=== PATIENT | male | born 1975 | race Caucasian/White ===

== ENCOUNTER 2017-01-11 08:06 | Emergency (ER) | payer OTHER ==
[2017-01-11 08:30] VITALS: BP 122/77; PULSE 81; TEMP 97.8; BMI 21.2
[2017-01-11] MEDS ORDERED: IBUPROFEN 600 MG TABLET (FP) PO ONE ×2 (09:19→09:25)
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
== END 2017-01-11 10:17 | disposition home or self-care (01) ==
LOC: JERFT 08:06
DX: S39.012A Strain of muscle, fascia and tendon of lower back, initial encounter (principal); S13.4XXA Sprain of ligaments of cervical spine, initial encounter; S60.222A Contusion of left hand, initial encounter; S60.212A Contusion of left wrist, initial encounter; V43.52XA Car driver injured in collision with other type car in traffic accident, initial encounter; W22.11XA Striking against or struck by driver side automobile airbag, initial encounter; Y92.488 Other paved roadways as the place of occurrence of the external cause; Y93.89 Activity, other specified; Y99.8 Other external cause status
CPT/HCPCS: 73110-TC-LT; 73130-TC-LT; 99281-25

== ENCOUNTER 2017-04-18 20:05 | Emergency (ER) | payer OTHER ==
--- NOTE | 2017-04-18 20:14 | PDOC ---
Rapid Medical Evaluation Time Seen by Provider: 04/18/17 20:13 Medical Evaluation: Allergies Allergy/AdvReac Type Severity Reaction Status Date / Time No Known Allergies Allergy Verified 02/01/17 14:10 04/18/17 20:14 42 year old male requesting HIV test.
[2017-04-18 20:17] VITALS: BP 123/68; PULSE 85; TEMP 98.6; BMI 21.5
--- NOTE | 2017-04-18 21:49 | PDOC ---
History of Present Illness - General Chief Complaint: Revisit, Lab Variance Stated Complaint: EVALUATION Time Seen by Provider: 04/18/17 20:13 History Source: Patient Exam Limitations: No Limitations - History of Present Illness Initial Comments: 04/18/17 21:44 pt here for HIV test. 42 yr male no PMHX states he had unprotected sex one month ago and would like a HIV test. Pt denies any symptoms of urinary burning, urgency or any pain, no discharge from the penis. 04/18/17 21:49 Severity: mild Past History - Past Medical History Allergies/Adverse Reactions: Allergies Allergy/AdvReac Type Severity Reaction Status Date / Time No Known Allergies Allergy Verified 04/18/17 20:17 Home Medications: Ambulatory Orders NK [No Known Home Medication] 04/18/17 COPD: No - Suicide/Smoking/Psychosocial Hx Smoking Status: No Smoking History: Never smoked Have you smoked in the past 12 months: No Number of Cigarettes Smoked Daily: 0 If you are a former smoker, when did you quit?: 28yrs Information on smoking cessation initiated: No Hx Alcohol Use: No Drug/Substance Use Hx: No Substance Use Type: None Review of Systems - Review of Systems Able to Perform ROS?: Yes Is the patient limited Lao proficient: No Constitutional: No: Symptoms Reported HEENTM: No: Symptoms Reported Respiratory: No: Symptoms reported Cardiac (ROS): No: Symptoms Reported ABD/GI: No: Symptoms Reported : Yes: Symptoms Reported *Physical Exam - Vital Signs Last Vital Signs Temp Pulse Resp BP Pulse Ox 98.6 F 85 17 123/68 98 04/18/17 20:14 04/18/17 20:14 04/18/17 20:14 04/18/17 20:14 04/18/17 20:14 - Physical Exam General Appearance: Yes: Nourished, Appropriately Dressed HEENT: positive: EOMI, EMILIO, Normal ENT Inspection Neck: positive: Supple Extremity: positive: Normal Capillary Refill, Normal Inspection, Normal Range of Motion Integumentary: positive: Normal Color, Dry, Warm Neurologic: positive: Fully Oriented, Alert, Normal Mood/Affect, Normal Response , Motor Strength 5/5 Medical Decision Making - Medical Decision Making 04/18/17 21:51 cc: requesting HIV test after having unprotected intercourse pt has no past medical history states last year had a negative HIV test I have given pt info for the [facility] for follow up as needed for any further testing pt denies any penile discharge or drainage pt does not want to be tested for Gc/chlamydia at this time or Syphylis will follow up at [facility] *DC/Admit/Observation/Transfer Diagnosis at time of Disposition: Negative laboratory testing for HIV - Discharge Dispostion Disposition: HOME Condition at time of disposition: Good - Referrals - Patient Instructions Additional Instructions: 04/18/17 1. As discussed, a screening test for the HIV virus was performed today. Your HIV test is Negative (normal). 2. As discussed, if you engaged in high risk-behavior in the three (3) months prior to this test, you could still potentially be at risk and you will need to be re-tested. 3. As discussed, avoid any high risk behavior (such as unprotected sex or needle-sharing) in the future to minimize the chances of farhana HIV. follow with the [facility] as needed [facility] Office [address] [place] [address], [place] [id number] Clinics: Fax for 2nd floor Clinic Services: - Post Discharge Activity
== END 2017-04-18 22:17 | disposition home or self-care (01) ==
LOC: JERFT 20:05
DX: Z77.21 Contact with and (suspected) exposure to potentially hazardous body fluids (principal); Z11.4 Encounter for screening for human immunodeficiency virus [HIV]
CPT/HCPCS: 36415; 99281-25

== ENCOUNTER 2018-05-15 10:27 | Emergency (ER) | payer OTHER ==
[2018-05-15 10:32] VITALS: BP 118/68; PULSE 81; TEMP 98; BMI 21.5
--- NOTE | 2018-05-15 11:25 | PDOC ---
History of Present Illness - General Chief Complaint: HIV Testing Stated Complaint: STS Time Seen by Provider: 05/15/18 10:59 History Source: Patient Exam Limitations: Clinical Condition - History of Present Illness Initial Comments: 05/15/18 11:21 Patient with no significant past medical history present for STD testing appetitive unprotective sex 2 weeks ago. Patient denies any symptoms. Timing/Duration: momentarily Past History - Past Medical History Allergies/Adverse Reactions: Allergies Allergy/AdvReac Type Severity Reaction Status Date / Time No Known Allergies Allergy Verified 05/15/18 10:29 Home Medications: Ambulatory Orders NK [No Known Home Medication] 04/18/17 COPD: No - Suicide/Smoking/Psychosocial Hx Smoking Status: No Smoking History: Never smoked Have you smoked in the past 12 months: No Number of Cigarettes Smoked Daily: 0 If you are a former smoker, when did you quit?: 28yrs Hx Alcohol Use: No Drug/Substance Use Hx: No Substance Use Type: None Review of Systems - Review of Systems Able to Perform ROS?: Yes Is the patient limited Slovenian proficient: No Constitutional: No: Chills, Fever, Malaise, Weakness HEENTM: No: Symptoms Reported Respiratory: No: Symptoms reported Cardiac (ROS): No: Symptoms Reported : No: Symptoms Reported, See HPI, Burning, Dysuria, Discharge, Frequency, Flank Pain, Hematuria, Incontinence, Pain, Urgency, Testicular Mass, Testicular Swelling, Lesions, Testicular Pain, Other Musculoskeletal: No: Symptoms Reported, See HPI, Back Pain, Gout, Joint Pain, Joint Swelling, Muscle Pain, Muscle Weakness, Neck Pain, Joint Stiffness, Other All Other Systems: Reviewed and Negative *Physical Exam - Vital Signs Last Vital Signs Temp Pulse Resp BP Pulse Ox 98 F 81 18 118/68 100 05/15/18 10:31 05/15/18 10:31 05/15/18 10:31 05/15/18 10:31 05/15/18 10:31 - Physical Exam General Appearance: Yes: Nourished, Appropriately Dressed. No: Apparent Distress HEENT: positive: Normal ENT Inspection Neck: positive: Supple Respiratory/Chest: positive: Lungs Clear, Normal Breath Sounds. negative: Respiratory Distress, Accessory Muscle Use Cardiovascular: positive: Regular Rhythm, Regular Rate Musculoskeletal: positive: Normal Inspection Extremity: positive: Normal Inspection Neurologic: positive: Fully Oriented, Alert Moderate Sedation - Procedure Monitoring Vital Signs: Procedure Monitoring Vital Signs Temperature 98 F 05/15/18 10:31 Pulse Rate 81 05/15/18 10:31 Respiratory Rate 18 05/15/18 10:31 Blood Pressure 118/68 05/15/18 10:31 O2 Sat by Pulse Oximetry (%) 100 05/15/18 10:31 Medical Decision Making - Medical Decision Making 05/15/18 11:22 Patient presented for STD testing after having unprotected sex 2 weeks ago with no symptoms. HIV test ordered. Syphilis, gonorrhea and chlamydia tests ordered. Treat based on test results. 05/15/18 12:20 HIV and syphilis test negative. Gonorrhea and chlamydia tests are pending. Patient is stable for discharge *DC/Admit/Observation/Transfer Diagnosis at time of Disposition: Screening examination for sexually transmitted disease, Negative laboratory testing for HIV - Discharge Dispostion Disposition: HOME Condition at time of disposition: Stable Decision to Admit order: No - Referrals - Patient Instructions Additional Instructions: 05/15/18 1. As discussed, a screening test for the HIV virus was performed today. Your HIV test is Negative (normal). 2. As discussed, if you engaged in high risk-behavior in the three (3) months prior to this test, you could still potentially be at risk and you will need to be re-tested. 3. As discussed, avoid any high risk behavior (such as unprotected sex or needle-sharing) in the future to minimize the chances of farhana HIV. - Post Discharge Activity
== END 2018-05-15 12:38 | disposition home or self-care (01) ==
LOC: JERFT 10:27
DX: Z11.3 Encounter for screening for infections with a predominantly sexual mode of transmission (principal)
CPT/HCPCS: 36415; 86593; 87389; 87491; 87591; 99281-25